=== PATIENT | female | born 1990 | race African-American/Black ===

== ENCOUNTER 2019-09-08 12:18 | Outpatient (RCR) | payer BC, SELFPAY | END 2019-09-25 07:49 | disposition home or self-care (01) | LOC: ANHOBOP 12:18 | PROVIDERS: PCP Family Medicine; Visit Provider Obstetrics & Gynecology | DX: O24.419 Gestational diabetes mellitus in pregnancy, unspecified control (principal); Z3A.36 36 weeks gestation of pregnancy | CPT/HCPCS: 59025 ==

== ENCOUNTER 2019-09-22 08:15 | Outpatient (CLI) | payer BC, SELFPAY ==
[2019-09-22 08:43] LABS: Hematocrit 36.8 % (37.0-47.0); Hemoglobin 12.2 g/dL (12.0-15.0); Mean Corpuscular HGB Conc 33.2 g/dl (32-36); Mean Corpuscular Hemoglobin 28.3 pg (26-34); Mean Corpuscular Volume 85.4 fl (80-100); Mean Platelet Volume 10.6 fl (7.4-10.4); Platelet Count Result 169 k/mm3 (150-375); Red Blood Count 4.31 M/mm3 (4.2-5.4); Red Cell Distribution Width 13.1 % (11.5-14.5); White Blood Count 8.4 K/mm3 (4.5-10.0)
[2019-09-22 11:35] LABS: Rapid Plasma Reagin Non-Reactive (NonReactive)
== END 2019-09-22 08:16 | disposition home or self-care (01) ==
PROVIDERS: PCP Family Medicine; Visit Provider Obstetrics & Gynecology
DX: Z01.818 Encounter for other preprocedural examination (principal)
CPT/HCPCS: 36415; 85027; 86592; 86850; 86900; 86901

== ENCOUNTER 2019-09-23 10:01 | Inpatient (IN) | payer BC, SELFPAY ==
--- NOTE | 2019-08-29 15:26 | PC.NURSE ---
VERIFIED WITH OR SCHEDULE AND PATIENT --C/S ON 09/23/19 AT 1200 PATIENT STATES SHE IS ALSO HAVING A TUBAL LIGATION--CONSENTS SIGNED PATIENT GIVEN REQUISITION FOR LAB DRAW ON 09/22/19
[2019-09-23] VITALS (43 sets, daily range): BP systolic 81–127; BP diastolic 41–79; PULSE 52–96; RESP 16–20; TEMP 36.3–36.9; O2SAT 98–100; BMI 38.7
[2019-09-23] MEDS: LACTATED RINGERS 1,000 ML 999 ML IV CONT (10:47)
--- NOTE | 2019-09-23 11:37 | WPDANESEPPF ---
Anes - Initial Pre Proc Eval Procedure: Operation Date: 09/23/19 12:00 Proposed Procedures p Repeat Section - José Antonio Espinoza MD Date/Time: 09/23/19 11:37 Surgeon: José Antonio Espinoza MD Pre Op Diagnosis: C Section Patient Data Age: 28 Gender: F Height: Weight: Last Vital Signs Pulse 87 09/23/19 10:46 BP 114/71 09/23/19 10:46 Allergies Allergy/AdvReac Type Severity Reaction Status Date / Time SEASONAL Allergy Sneezing Uncoded 08/29/19 14:48 Home Medications Medication Instructions Recorded Confirmed Type PNV cmb#95-ferrous fumarate-FA 1 tablet PO DAILY 08/29/19 08/29/19 History [] aevqccbvzg-tzpbttyttwahl-ukkp 1 cap PO Q4H PRN 08/29/19 08/29/19 History [Fioricet] Laboratory Tests 09/23/19 11:35 POC Capillary Glucose Pending Patient hx anesthesia problems: none Family hx anesthesia problems: none PMFSH Past Medical History Medical History (Updated 09/23/19 @ 11:38 by Stefan Clark MD) Gestational diabetes Obesity Surgical History Surgical History (Updated 09/23/19 @ 11:38 by Stefan Clark MD) History of section Family History Family History Mother AIDS History of blood clots Grandparent Diabetes mellitus Blindness and low vision Daughter Asthma Social History Social History Substance use: current Last use: FIORICET FRO HEADACHE--08/26/19 Spiritual care concerns: No Anes - Eval Final PreProcedure Day of Procedure 09/23/19 11:37 Patient weight: obese Heart: regular rate and rhythm Lungs: clear to auscultation Airway: Mallampati scale class II Neurological: alert and oriented Last oral intake: >/= 8 hours ASA classification: III Emergent: no Anesthetic plan: proceed Anesthesia type and monitoring: regional spinal and standard monitoring Informed Consent: The patient's anesthetic plan and its attendant risks and benefits were discussed with the patient/family/POA. Questions were solicited and answers provided to the satisfaction of the patient/family/POA.
[2019-09-23 11:38] LABS: Glucose Point of Care 48 (65-105)
--- NOTE | 2019-09-23 11:40 | PC.NURSE ---
Called Dr. Espinoza to inform him of blood glucose of 48. Orders received.
[2019-09-23] MEDS: DEXTROSE 5%/LACTATED RINGERS 1,000 ML 999 ML IV CONT (11:49)
--- NOTE | 2019-09-23 12:15 | PM.IMHP ---
H&P: HPI History of Present Illness Chief complaint: C Section Narrative: Karmen Wiley is a 28 year old female multiparous at 30 weeks gestation has a history of multiple deliveries. For repeat delivery and bilateral tubal ligation. The patient desires infertility. Denies any headache, blurry vision, epigastric pain. She denies any contractions or loss of fluid. She denies any vaginal bleeding. She has chest pain or shortness of breath. She denies any nausea, vomiting, fever, chills. Review of Systems Constitutional: Constitutional: Reports no additional constitutional complaints, Denies fatigue, Denies headache(s), Denies lethargy and Denies weakness Eyes: Eyes: Reports no additional eye complaints, Denies blurry vision and Denies photophobia ENT: Reports as per HPI, Denies headache(s) and Denies neck pain Cardiovascular: Cardiovascular: Denies chest pain, Denies diaphoresis, Denies leg edema, Denies palpitations and Denies dyspnea Respiratory: Respiratory: Denies hemoptysis, Denies dyspnea and Denies wheezing Gastrointestinal: Gastrointestinal: Denies abdominal pain, Denies melena, Denies bloating, Denies hematochezia, Denies nausea and Denies vomiting Genitourinary: Genitourinary: Reports no additional female genitourinary complaints Musculoskeletal: Musculoskeletal: Denies joint swelling, Denies neck pain, Denies numbness and Denies stiffness Neurologic: Denies Abnormal speech present, Denies confusion, Denies headache(s), Denies numbness and Denies weakness Psychiatric: Psychiatric: Denies anxiety, Denies confusion, Denies depression, Denies homicidal ideation and Denies suicidal ideation Endocrine: Endocrine: Denies fatigue and Denies palpitations Allergic/Immunologic: Allergic/Immunologic: Denies wheezing PMF Past Medical History Medical History (Updated 09/23/19 @ 12:17 by José Antonio Espinoza MD) Gestational diabetes Obesity Surgical History Surgical History (Updated 09/23/19 @ 12:17 by José Antonio Espinoza MD) History of section Family History Family History Mother AIDS History of blood clots Grandparent Diabetes mellitus Blindness and low vision Daughter Asthma Social History Social History Substance use: current Last use: FIORICET FRO HEADACHE--08/26/19 Spiritual care concerns: No Meds Home Medications and Allergies Home Medications Medication Instructions Recorded Confirmed Type PNV cmb#95-ferrous fumarate-FA 1 tablet PO DAILY 08/29/19 08/29/19 History [] pkkhpebeyo-alsdfaomaywfr-hxbq 1 cap PO Q4H PRN 08/29/19 08/29/19 History [Fioricet] Allergies Allergy/AdvReac Type Severity Reaction Status Date / Time SEASONAL Allergy Sneezing Uncoded 08/29/19 14:48 Vital Signs Vital Signs - 24 hr 09/23/19 10:31 09/23/19 10:46 Pulse Rate 96 87 Blood Pressure 110/66 114/71 Exam Const: General: healthy appearing, comfortable and no acute distress; No confusion Orientation/consciousness: No confusion Eyes: Direct Ophthalmoscopy: No photophobia Resp: Auscultation: clear to auscultation bilaterally, no rales, no rhonchi and no wheezes Cardio: Rate: regular rate Heart sounds: no click, no murmurs and no rubs GI: Inspection: non-distended GI Palp: No abdominal tenderness Auscultation: normal bowel sounds Neuro: General: No confusion Speech: No Abnormal speech present Extrem: General: normal to inspection, no pedal edema and no calf tenderness Assessment and Plan Assessment and plan (1) Unwanted fertility: Code(s): Z30.09 - Encounter for other general counseling and advice on contraception Status: Acute (2) Previous section: Code(s): Z98.891 - History of uterine scar from previous surgery Status: Acute Assessment and Plan: This patient is a 28-year-old multipar
[2019-09-23] MEDS: ceFAZolin 2 GM/D5W 50 ML 2 GM/50 ML BAG IVPB (12:37)
--- NOTE | 2019-09-23 13:27 | PM.PROC ---
Procedure Note - Detailed Date of procedure: 09/23/19 Pre-op diagnosis: C Section Unwanted fertility, previous delivery Post-op diagnosis: same Procedure performed: Repeat low-transverse delivery, tubal ligation Description of procedure: The patient was taken the operating room. She was prepped and draped in the dorsal supine position with leftward tilt after induction of spinal anesthetic. When anesthesia was found to be adequate a low-transverse skin incision was made and carried down to the level the fascia with the knife. The fascial incision was made at the midline with a scalpel. The fascial incision was extended laterally with Hendricks scissors. The fascia was tented upward superior and inferior with King clamps. The rectus muscles were dissected off bluntly. The rectus muscles at the midline. The preperitoneal fat was dissected bluntly at the superior aspect of the separate the rectus muscles. The peritoneal cavity was entered bluntly in the same area. The peritoneal incision was extended superior and inferior with good position of bladder. Bladder blade was inserted. A low-transverse incision was made on the uterus with the scalpel. It was carried down the level of the amniotic cavity with a knife. The amniotic cavity bluntly. The uterine incision was made laterally with blunt traction. The was delivered. The cord was clamped and cut. The was handed off to waiting pediatric staff. Cord bloods were obtained. The placenta was removed manually. The uterus was exteriorized. Uterus cleared of all clots and debris. Uterus closed in 0 Vicryl in a running locked fashion. An imbricating layer of 0 Vicryl was also placed on the to bolster the closure. Fallopian tube was grasped in the ampullary region with a Bassett. It was raised away from the accompanying vein. A window was created in the broad ligament in this area of the tube. 0 Vicryl was used to ligate the proximal distal ends of the skeletonize region of the tube. The segment of the tube was resected with scissors. The cut surfaces were cauterized. On the contralateral side the procedure was performed identically. The uterus was returned to the abdomen. The gutters were cleared of all clots and debris. The fascia was closed 0 Vicryl in a running fashion. Subcutaneous tissue was irrigated and bleeding areas were cauterized. The skin was closed with subcuticular absorbable helen. The incision was covered with derma jenkins. The patient tolerated the procedure well. She was taken recovery room stable condition. Sponge, lap, needle counts were correct x2. Anesthesia: spinal Surgeon: José Antonio Espinoza MD Estimated blood loss (mL): 340 Drains: No Packing: No Pathology: none sent Complications: No immediate complications Condition: stable Disposition: floor Findings: Normal maternal anatomy. Average size infant with normal Apgars.
--- NOTE | 2019-09-23 16:06 | PC.NURSE ---
Patient transferred to post room #288 via 1606. Support person present. Oriented to unit, room, information board, rooming in, admission packet and security measures. Patient verbalizes understanding.
[2019-09-23 16:15] LABS: Glucose Point of Care 118 (65-105)
--- NOTE | 2019-09-23 17:20 | SUR.PHASEI ---
RECOVERY (PHASE 1) CHARTING WAS INTERRUPTED AND END TIME WAS PUT IN BEFORE ALL CHARTING DONE. ALSO, CHARTING FIRST HOUR WAS DONE SEPARATE WITH VITAL SIGNS B/C PUT INTO 120 RATHER THAN 119 FOR TRANSFER. ALL ASSESSMENTS STABLE. BREASTFED WELL. BENADRYL FOR ITCHING EARLY AND TORADOL FOR PAIN AT THE END 1530. TRANSPORT VIA STRETCHER TO [facility] AND REPORT TO Lauren RODRIGUEZ RN
--- NOTE | 2019-09-23 17:36 | LDADM ---
This patient, Karmen Wiley, was admitted to OB 2nd Floor Room 288 on 09/23/19 at 10:01. Plans for labor, pain management and were discussed with patient. Patient/family oriented to hospital policies and general routines including ID bracelet, bed and alarms, visiting hours, pain management, procedures, bathroom and other care routines, personal items, smoking policy, room service/diet and guest tray routines, infant security routines, and visiting hours. Patient/Family are encouraged to report perceived risks to care and to ask questions if they do not understand what they are told or what they should do. See OBIX for further documentation.
[2019-09-23] MEDS: OXYTOCIN 30 UNITS/NS 500 ML 30 UNITS/500 ML BAG 125 UNITS IV CONT (17:37)
[2019-09-23] MEDS: NALBUPHINE HCL 10 MG/ML AMPUL 3 MG IV PUSH ×2 (17:44→22:39)
[2019-09-23] MEDS: DEXTROSE 5%/0.45% SOD CHL 1,000 ML 125 ML IV CONT (21:30)
[2019-09-24] MEDS: IBUPROFEN 600 MG TABLET PO ×3 (00:52→17:11)
[2019-09-24] MEDS: NALBUPHINE HCL 10 MG/ML AMPUL 3 MG IV PUSH (04:00)
[2019-09-24 04:05] VITALS: BP 100/62; PULSE 72; RESP 16; TEMP 36.7
[2019-09-24 04:13] LABS: Basophils Percent Auto 0.3 % (0.2-1.2); Eosinophils Absolute Auto 0.4 K/mm3 (0-0.3); Eosinophils Percent Auto 3.5 % (0-4.4); Hematocrit 35.9 % (37.0-47.0); Hemoglobin 11.7 g/dL (12.0-15.0); Immature Granulocyte Absolute 0.09 K/mm3 (0.00-0.031); Immature Granulocyte Percent A 0.9 % (0-0.5); Lymphocytes Absolute Auto 1.78 K/mm3 (0.9-3.2); Lymphocytes Percent Auto 16.9 % (18.3-44.2); Mean Corpuscular HGB Conc 32.6 g/dl (32-36); Mean Corpuscular Hemoglobin 28.3 pg (26-34); Mean Corpuscular Volume 86.7 fl (80-100); Mean Platelet Volume 10.7 fl (7.4-10.4); Monocytes Absolute Auto 0.6 K/mm3 (0.1-0.6); Monocytes Percent Auto 5.8 % (2.6-8.5); Neutrophils Absolute Auto 7.6 K/mm3 (1.3-6.7); Neutrophils Percent Auto 72.6 % (45.5-73.1); Platelet Count Result 148 k/mm3 (150-375); Red Blood Count 4.14 M/mm3 (4.2-5.4); White Blood Count 10.5 K/mm3 (4.5-10.0)
--- NOTE | 2019-09-24 07:35 | PM.OBPNVD ---
OB - PN: Subj Subjective Date/time seen: 09/24/19 07:35 Patient comments: no complaints, pain well controlled, tolerating diet and flatus present OB - PN: Obj Data Labs CBC & Chem 7: 09/24/19 03:57 Labs: Laboratory Results - last 24 hr 09/23/19 09/23/19 09/24/19 11:35 13:32 03:57 WBC 10.5 H RBC 4.14 L Hgb 11.7 L Hct 35.9 L MCV 86.7 MCH 28.3 MCHC 32.6 RDW 13.0 Plt Count 148 L MPV 10.7 H Immature Gran % (Auto) 0.9 H Neut % (Auto) 72.6 Lymph % (Auto) 16.9 L [place] % (Auto) 5.8 Eos % (Auto) 3.5 Baso % (Auto) 0.3 Lymph # (Auto) 1.78 [place] # (Auto) 0.6 Eos # (Auto) 0.4 H Baso # (Auto) 0.0 Abs Immat Gran (auto) 0.09 H Absolute Neuts (auto) 7.6 H Absolute Nucleated RBC 0.0 Nucleated RBC % 0.0 POC Capillary Glucose 48 L* 118 H OB - PN A/P Plan day: 1 Comments: Post Op LTCS - no problems, routine recovery Time Spent With Patient Time: Total time spent is greater than 50% in coordination of care (as documented) at patient's floor/unit and/or counseling patient: Exam Const: General: cooperative, healthy appearing, comfortable and no acute distress Resp: Auscultation: no crackles, no rales, no rhonchi and no wheezes Cardio: Rhythm: regular rhythm Heart sounds: no click and no murmurs GI: Inspection: non-distended Auscultation: normal bowel sounds Extrem: General: normal to inspection, no pedal edema and no calf tenderness
[2019-09-24 08:30] VITALS: BP 109/64; PULSE 77; RESP 18; TEMP 36.8; O2SAT 98
--- NOTE | 2019-09-24 08:52 | WPDANLDPN2 ---
Anes-Prog Note L&D Date/Time: 09/24/19 08:52 Comfortable throughout: section Neuraxial method: spinal Epidural/Spinal procedure site: clean & non-tender Neuro status: Neuro function grossly intact. Cardiovascular status: normal Respiratory status: normal Airway patency: baseline Mental status: baseline Post-Op hydration status: normal Vital Signs: Last Vital Signs Temp 36.7 C 09/24/19 04:05 Pulse 72 09/24/19 04:05 Resp 16 09/24/19 04:05 BP 100/62 09/24/19 04:05 Pulse Ox 98 09/23/19 23:05 I/O: Intake & Output 09/23/19 09/24/19 09/24/19 23:59 07:59 15:59 Intake Total 390 1240 Output Total 200 2900 Balance 190 -1660 Post-procedural complaints: none Patient feedback: Patient satisfied with anesthetic care.
--- NOTE | 2019-09-24 08:52 | WPDANLDNPN2 ---
Anes-Prog Note L&D-Neuraxial Date/Time: 09/24/19 08:52 Neuraxial medications: intrathecal PF morphine Opiod-related complaints: none Patient feedback: Patient satisfied with post-operative pain management.
[2019-09-24] MEDS: DOCUSATE SODIUM 100 MG CAPSULE PO (08:53)
[2019-09-24] MEDS: MULTIVIT/MIN/PREN/FOL AC/IRON TABLET 1 TAB PO (08:53)
[2019-09-24] MEDS: LORATADINE 10 MG TABLET PO (08:53)
[2019-09-24 13:00] VITALS: BP 120/69; PULSE 79; RESP 18; TEMP 36.6; O2SAT 100
--- NOTE | 2019-09-24 13:33 | PC.NURSE ---
1230 Breast feeding note; mother had at breast; using a sidelying position because of abdominal incision. reviewed positioning alignment, use of c-hold and importance of deep maintained latch; mother reports comfortable latch at this time. baby maintained latch and demonstrated rhythmic sucking, requiring some stimulation to more vigorous sucking; when baby switched sides, latch improved and demonstrated rhythmic sucking;FOB present, engaged in mother and baby care. Reviewed with couple q2-3h and on demand feedings. also suggested to mother that as she is feeling better to ask nurse to help her with different positions for feedings. She and FOB voiced understanding
[2019-09-24] MEDS: SIMETHICONE 80 MG TAB.CHEW PO (14:21)
[2019-09-24 17:10] VITALS: BP 115/62; PULSE 76; RESP 18; TEMP 36.8; O2SAT 100
--- NOTE | 2019-09-24 17:17 | PC.NURSE ---
Pt called out to frontend engineer and stated she felt like she had fever. This RN went into pts room and did a set of vitals. Pts temp was 98.3 all other vitals were within normal range. Pt then requested a cup of hot tea. This RN took pt hot tea. Pt is resting in bed comfortably. Will continue to monitor.
[2019-09-25] MEDS: IBUPROFEN 600 MG TABLET PO ×2 (00:30→09:25)
--- NOTE | 2019-09-25 08:08 | PM.OBPNVD ---
OB - PN: Subj Subjective Date/time seen: 09/25/19 08:08 Patient comments: no complaints, pain well controlled, incisional pain, tolerating diet and flatus present OB - PN: Obj Data Labs CBC & Chem 7: 09/24/19 03:57 OB - PN A/P Plan day: 2 Plan: routine care Comments: POD#2 LTCS - no problems, To D/C Time Spent With Patient Time: Total time spent is greater than 50% in coordination of care (as documented) at patient's floor/unit and/or counseling patient: Exam Const: General: comfortable, no acute distress and alert Resp: Effort & Inspection: normal respiratory effort Auscultation: no crackles, no rales and no rhonchi Cardio: Rate: regular rate Heart sounds: no click, no murmurs and no rubs GI: Inspection: non-distended GI Palp: No Tenderness to palpation present (GI) Auscultation: normal bowel sounds Other: Incision - CDI Extrem: General: normal to inspection, no pedal edema and no calf tenderness
--- NOTE | 2019-09-25 08:09 | PM.OBDSVD ---
DS: Admitting Diagnosis Admitting Diagnosis Admitting Diagnosis: Encounter for other general counseling and advice on contraception DS: Discharge Diagnosis Discharge Diagnosis (1) Previous section: Code(s): Z98.891 - History of uterine scar from previous surgery Status: Acute (2) Unwanted fertility: Code(s): Z30.09 - Encounter for other general counseling and advice on contraception Status: Acute OB - DS: Summary OB Procedures : NST and Ultrasound OB Procedures Intrapartum: and Tubal ligation OB Procedures: : None Peripartum Data Infant Delivery Method: Section Procedures: Procedures Operation Date: 09/23/19 12:00 Actual Procedures Side Surgeon p Section Bilateral José Antonio Espinoza MD Status at Discharge Functional status at discharge: independent ambulation Time Spent with Patient Time attestation: Total time spent providing and/or coordinating discharge services: DS: Data Data Completed and Pending Completed studies during hospitalization: Pending at discharge 09/23/19 13:06 Cytology [PTH] Routine Discharge Plan Discharge Patient Disposition: Home Health Service Patient Instructions: Antibiotic Form Stand Alone Forms: General Discharge Information Follow-up/Referrals: José Antonio Espinoza MD [Physician] - Discharge Medications: New hydrocodone-acetaminophen 5-325 mg tablet 1 - 2 tablet PO Q4H PRN (Reason: pain) Qty: 25 RF: 0 Continued PNV cmb#95-ferrous fumarate-FA [] 28 mg iron- 800 mcg Tablet 1 tablet PO DAILY RF: 0 bqdgyvujri-oqxotvkxhvoso-ccvh [Fioricet] 50-300-40 mg Capsule 1 cap PO Q4H PRN (Reason: Headache) RF: 0 Date of admission: 09/23/19 10:01 Primary Care Provider: Julio C,Vivian Mcguire Admitting Provider: José Antonio Espinoza Attending physician on admission: José Antonio Espinoza
[2019-09-25 08:15] VITALS: BP 114/69; PULSE 67; RESP 18; TEMP 36.9; O2SAT 98
[2019-09-25] MEDS: MULTIVIT/MIN/PREN/FOL AC/IRON TABLET 1 TAB PO (09:24)
[2019-09-25] MEDS: DOCUSATE SODIUM 100 MG CAPSULE PO (09:25)
--- NOTE | 2019-09-25 10:00 | PC.NURSE ---
Consulted with patient, upon entering mother has infant to breast. Mother has latched deeply in cross cradle. Infant nursed eagerly, with steady draws and frequent swallowing noted. Reviewed positioning/alignment , holding breast and asymmetrical latch on. Reviewed signs of a correct latch, effective nursing and suck swallow ratio. Nipple care reviewed. Reviewed feeding cues, frequencies, duration of feedings, feeding elimination flow sheet, and signs of adequate intake. Mother reports she breastfed two other children. Mother is feeding as required and waking infant to feed if needed. has had at least 8 effective feedings in the past 24 hours, and is currently meeting outcomes for weight, output, jaundice and feeding frequencies. Mother states she feels confident to continue effective at home. Reviewed transition to breast milk, signs of adequate intake, and engorgement/relief. Instructed to call ICP if intake/output less than required. Reviewed regular medications mother is taking. Information provided per Martita. Reviewed community resources on the [facility] website and in the Mom/Baby guide. Information on outpatient services provided. Mother has no further questions at this time.
--- NOTE | 2019-09-25 11:45 | PC.NURSE ---
Patient was given the opportunity to view the discharge video Mother & Baby Care, The First Two Weeks and to ask questions. Patient declined viewing the video and has been given the mother/baby guide for home reference.
[2019-09-26 13:13] VITALS: BP 106/64; PULSE 82; RESP 20; TEMP 37.1
== END 2019-09-25 13:46 | disposition home or self-care (01) | DRG 785 ==
LOC: ANHLDR 10:07 → ANHOB2 16:09
PROVIDERS: Admitting Provider Obstetrics & Gynecology; PCP Family Medicine; Visit Provider Obstetrics & Gynecology
PROC: 10D00Z1 Extraction of Products of Conception, Low, Open Approach (ICD-10-PCS; CPT 59514; principal; 2019-09-23 12:00)
DX: O34.211 Maternal care for low transverse scar from previous cesarean delivery (principal); Z37.0 Single live birth; Z3A.39 39 weeks gestation of pregnancy; O99.824 Streptococcus B carrier state complicating childbirth; O24.420 Gestational diabetes mellitus in childbirth, diet controlled; O99.214 Obesity complicating childbirth; E66.9 Obesity, unspecified; O69.81X0 Labor and delivery complicated by cord around neck, without compression, not applicable or unspecified; Z30.2 Encounter for sterilization
CPT/HCPCS: 36415; 85025; 85027; 86592; 86850; 86900; 86901; 88302; A9270; J0690; J2274; J2300; J2370; J2590; J7120; J7121

== ENCOUNTER 2020-06-07 14:37 | Outpatient (CLI) | payer SELFPAY ==
--- NOTE | ~2020-06-07 | XR_ITS ---
EXAMINATION: XR chest 2V EXAM DATE: 06/07/2020 15:21 INDICATION: TB positive test. TECHNIQUE: Frontal and lateral projections of the chest obtained and reviewed. Comparison is made to prior examination from 03/26/2019. FINDINGS: The lungs are clear. There are no pleural effusions. The cardiomediastinal silhouette is within normal limits. There is no pneumothorax suspected. The bones and soft tissues are unremarkab le. IMPRESSION: Normal chest x-ray exam. Reviewed, dictated and finalized at location B. Y MACHINE OPERATOR FARMWORKER IMPRESSION: Normal chest x-ray exam.
== END 2020-06-07 14:38 | disposition home or self-care (01) ==
LOC: ANHIMG 14:50
PROVIDERS: PCP Family Medicine
DX: R76.11 Nonspecific reaction to tuberculin skin test without active tuberculosis (principal)
CPT/HCPCS: 71046